=== PATIENT | female | born 1945 | race Caucasian/White ===

== ENCOUNTER 2018-06-15 22:10 | Emergency (ER) | payer MEDICARE ==
[~2018-06-15] VITALS: Ht 162.6 cm; Wt 72.6 kg
--- NOTE | 2018-06-15 22:31 | PHYS DOC ---
Adult General Chief Complaint Chief Complaint: ABDOMINAL PAIN HPI HPI Patient is a 73-year-old female who presents with complaint of upper abdominal pain that started at around 3:30 this afternoon. She rates pain to be a 7 out of 10. She does admit to nausea with vomiting and diarrhea. She states the pain radiates into her back. She denies any fever. Patient states that nothing seems to worsen or improve her symptoms. Review of Systems Review of Systems Constitutional: Denies fever or chills [] Respiratory: Denies cough or shortness of breath [] Cardiovascular: No additional information not addressed in HPI [] GI: Complains of abdominal pain with nausea and vomiting. Denies diarrhea [] : Denies dysuria or hematuria [] Musculoskeletal: Complains of mid back pain [] All other systems were reviewed and found to be within normal limits, except as documented in this note. Current Medications Current Medications Current Medications Medications (Trade) Dose Ordered Sig/Dayday Start Time Stop Time Status Last Admin Dose Admin Fentanyl Citrate (Fentanyl 2ml Vial) 100 mcg STK-MED ONCE 06/15/18 23:37 06/15/18 23:38 DC Hydromorphone HCl (Dilaudid) 0.5 mg 1X ONCE 06/16/18 02:00 06/16/18 02:03 DC 06/16/18 01:55 0.5 MG Ondansetron HCl (Zofran) 4 mg 1X ONCE 06/15/18 22:45 06/15/18 22:46 DC 06/15/18 23:01 4 MG Sodium Chloride 1,000 ml @ 1,000 mls/hr Q1H 06/15/18 22:45 06/15/18 23:44 DC 06/15/18 23:01 1,000 MLS/HR Tamsulosin HCl (Flomax) 0.4 mg 1X ONCE 06/16/18 01:45 06/16/18 01:46 DC 06/16/18 01:55 0.4 MG Allergies Allergies Allergies Coded Allergies Type Severity Reaction Last Updated Verified No Known Drug Allergies 06/15/18 No Physical Exam Physical Exam Constitutional: Well developed, well nourished, in mild distress. [] HENT: Normocephalic, atraumatic, bilateral external ears normal, oropharynx moist, no oral exudates, nose normal. [] Eyes: PERRLA, EOMI, conjunctiva normal, no discharge. [] Neck: Normal range of motion, no tenderness, supple, no stridor. [] Cardiovascular:Heart rate regular rhythm, no murmur [] Lungs & Thorax: Bilateral breath sounds clear to auscultation [] Abdomen: Bowel sounds normal, soft, no tenderness. [] Skin: Warm, dry, no erythema, no rash. [] Extremities: No tenderness, no cyanosis, no clubbing, ROM intact, no edema. [] Neurologic: Alert and oriented X 3, no focal deficits noted. [] Current Patient Data Vital Signs Vital Signs Date Time Temp Pulse Resp B/P (MAP) Pulse Ox O2 Delivery O2 Flow Rate FiO2 06/16/18 01:55 16 96 Room Air 06/16/18 01:25 72 159/71 (100) 06/16/18 00:35 0.1 06/15/18 22:11 98.0 98.0 Lab Values Laboratory Tests Test 06/15/18 22:55 White Blood Count 11.2 x10^3/uL (4.0-11.0) H Red Blood Count 5.13 x10^6/uL (3.50-5.40) Hemoglobin 14.9 g/dL (12.0-15.5) Hematocrit 44.9 % (36.0-47.0) Mean Corpuscular Volume 88 fL (79-100) Mean Corpuscular Hemoglobin 29 pg (25-35) Mean Corpuscular Hemoglobin Concent 33 g/dL (31-37) Red Cell Distribution Width 13.2 % (11.5-14.5) Platelet Count 179 x10^3/uL (140-400) Neutrophils (%) (Auto) 83 % (31-73) H Lymphocytes (%) (Auto) 12 % (24-48) L Monocytes (%) (Auto) 4 % (0-9) Eosinophils (%) (Auto) 0 % (0-3) Basophils (%) (Auto) 0 % (0-3) Neutrophils # (Auto) 9.3 x10^3uL (1.8-7.7) H Lymphocytes # (Auto) 1.4 x10^3/uL (1.0-4.8) Monocytes # (Auto) 0.5 x10^3/uL (0.0-1.1) Eosinophils # (Auto) 0.0 x10^3/uL (0.0-0.7) Basophils # (Auto) 0.0 x10^3/uL (0.0-0.2) Sodium Level 141 mmol/L (136-145) Potassium Level 4.5 mmol/L (3.5-5.1) Chloride Level 103 mmol/L (98-107) Carbon Dioxide Level 25 mmol/L (21-32) Anion Gap 13 (6-14) Blood Urea Nitrogen 25 mg/dL (7-20) H Creatinine 1.3 mg/dL (0.6-1.0) H Estimated GFR (Cockcroft-Gault) 40.2 BUN/Creatinine Ratio 19 (6-20) Glucose Level 191 mg/dL (70-99) H Calcium Level 9.5 mg/dL (8.5-10.1) Total Bilirubin 0.3 mg/dL (0.2-1.0) Aspartate Amino Transferase (AST) 28 U/L (15-37) Alanine Aminotransferase (ALT) 42 U/L (14-59) Alkaline Phosphatase 83 U/L (46-116) Troponin I Quantitative < 0.017 ng/mL (0.000-0.055) Total Protein 7.9 g/dL (6.4-8.2) Albumin 3.9 g/dL (3.4-5.0) Albumin/Globulin Ratio 1.0 (1.0-1.7) Lipase 145 U/L (73-393) Laboratory Tests 06/15/18 22:55 Laboratory Tests 06/15/18 22:55 EKG EKG [] Radiology/Procedures Radiology/Procedures [] Impressions: EXAM: CT Abdomen and Pelvis without IV contrast CLINICAL HISTORY: abd pain COMPARISON: CT 02/21/2011 TECHNIQUE: Helical CT of the abdomen and pelvis without intravenous contrast. Axial, coronal and sagittal reformatted images were generated. PQRS compliance statement - One or more of the following individualized dose reduction techniques were utilized for this study: 1. Automated exposure control 2. Adjustment of the mA and/or kV according to patient size 3. Use of iterative reconstruction technique FINDINGS: Lack of intravenous contrast limits evaluation of solid organs, vasculature, and lymph nodes. Lower chest: Lung bases are clear. Subpleural opacities left lower lobe likely scarring/atelectasis. Abdomen and Pelvis: No focal liver lesion. Gallbladder is normal. No biliary ductal dilatation. Spleen is unremarkable. Pancreas is normal. Adrenal glands are unremarkable. Multiple bilateral renal calculi are seen, for example a left interpolar renal calculus measures 3 mm and a left lower pole calculus measures 5 mm. There is a 4 mm calculus at the right ureterovesicular junction with moderate right hydronephrosis and hydroureter and associated perinephric and periureteral fat infiltration. No definite lateral calculus is seen. Appendix is normal. The transverse colon and left colon is mostly decompressed. No small or large bowel dilatation. No abdominal or pelvic ascites or lymphadenopathy. Aortic calcifications are seen. Bones: Multilevel degenerative changes of the spine are seen. L4 hemangioma is seen. IMPRESSION: 1. A 4 mm calculus at the right ureterovesicular junction results in moderate right hydronephrosis and hydroureter. Associated perinephric and periureteric fat infiltration is seen, superimposed infection is not excluded. 2. Multiple additional bilateral nonobstructing renal calculi. Electronically signed by: Smith Das MD (06/16/2018 1:23 AM) [facility] Course & Med Decision Making Course & Med Decision Making Pertinent Labs and Imaging studies reviewed. (See chart for details) [] Dragon Disclaimer Dragon Disclaimer This electronic medical record was generated, in whole or in part, using a voice recognition dictation system. Departure Departure Impression: Primary Impression: Ureterolithiasis Disposition: 01 HOME, SELF-CARE Condition: STABLE Referrals: NO PCP (PCP) ANDREW VERNON MD Patient Instructions: Kidney Stones Scripts Tamsulosin Hcl (FLOMAX) 0.4 Mg Cap.er.24h 0.4 MG PO DAILY for 7 Days, #7 TAB Prov: ROZINA BROWN Jr. DO 06/16/18 Ondansetron Hcl (ZOFRAN) 4 Mg Tablet 4 MG PO PRN TID PRN for NAUSEA, #15 nausea/vomiting Prov: ROZINA BROWN Jr. DO 06/16/18 Oxycodone/Apap 7.5-325 (PERCOCET 7.5-325 MG TABLET ) 1 Each Tablet 1 TAB PO PRN Q6HRS PRN for PAIN, #15 TAB 0 Refills Prov: ROZINA BROWN Jr. DO 06/16/18 ROZINA BROWN Jr. DO Jun 15, 2018 22:31
[2018-06-15] MEDS ORDERED: IV NORMAL SALINE 1000ML BAG 1,000 ML IV SCH (22:45)
[2018-06-15] MEDS ORDERED: ONDANSETRON PF 4 MG/2 ML VIAL. IV ONE (22:45)
[2018-06-15] MEDS ORDERED: fentaNYL PF VIAL 100 MCG/2 ML VIAL IV PRN (22:45)
[2018-06-15] MEDS ORDERED: ATOR20TA58 PO (22:47)
[2018-06-15 23:03] LABS: BASO % 0 % (0-3); EOS % 0 % (0-3); HEMATOCRIT 44.9 % (36.0-47.0); HEMOGLOBIN 14.9 g/dL (12.0-15.5); LYMPH # 1.4 x10^3/uL (1.0-4.8); LYMPH % 12 % (24-48); MEAN CORPUSCULAR HEMOGLOBIN 29 pg (25-35); MEAN CORPUSCULAR HGB CONC 33 g/dL (31-37); MEAN CORPUSCULAR VOLUME 88 fL (79-100); MONO # 0.5 x10^3/uL (0.0-1.1); MONO % 4 % (0-9); NEUT # 9.3 x10^3uL (1.8-7.7); NEUT % 83 % (31-73); PLATELET COUNT 179 x10^3/uL (140-400); RED BLOOD COUNT 5.13 x10^6/uL (3.50-5.40); RED CELL DISTRIBUTION WIDTH 13.2 % (11.5-14.5); WHITE BLOOD COUNT 11.2 x10^3/uL (4.0-11.0)
[2018-06-15 23:11] LABS: CALCIUM 9.5 mg/dL (8.5-10.1); CREATININE 1.3 mg/dL (0.6-1.0); GFR 40.2; POTASSIUM 4.5 mmol/L (3.5-5.1)
[2018-06-15 23:17] LABS: ALBUMIN 3.9 g/dL (3.4-5.0); TOTAL BILIRUBIN 0.3 mg/dL (0.2-1.0); TOTAL PROTEIN 7.9 g/dL (6.4-8.2)
[2018-06-15] MEDS ORDERED: fentaNYL PF VIAL 100 MCG/2 ML VIAL ONE (23:37)
[2018-06-15] MEDS ORDERED: fentaNYL PF VIAL 100 MCG/2 ML VIAL IV ONE (23:45)
[2018-06-16] MEDS ORDERED: HYDROmorphone 2 MG/ML VIAL ONE (00:29)
[2018-06-16] MEDS ORDERED: HYDROmorphone 2 MG/ML VIAL IV ONE ×3 (00:30→02:00)
[2018-06-16 01:25] VITALS: BP 159/71
--- NOTE | 2018-06-16 01:26 | RAD ---
EXAM: CT Abdomen and Pelvis without IV contrast CLINICAL HISTORY: abd pain COMPARISON: CT 02/21/2011 TECHNIQUE: Helical CT of the abdomen and pelvis without intravenous contrast. Axial, coronal and sagittal reformatted images were generated. PQRS compliance statement - One or more of the following individualized dose reduction techniques were utilized for this study: 1. Automated exposure control 2. Adjustment of the mA and/or kV according to patient size 3. Use of iterative reconstruction technique FINDINGS: Lack of intravenous contrast limits evaluation of solid organs, vasculature, and lymph nodes. Lower chest: Lung bases are clear. Subpleural opacities left lower lobe likely scarring/atelectasis. Abdomen and Pelvis: No focal liver lesion. Gallbladder is normal. No biliary ductal dilatation. Spleen is unremarkable. Pancreas is normal. Adrenal glands are unremarkable. Multiple bilateral renal calculi are seen, for example a left interpolar renal calculus measures 3 mm and a left lower pole calculus measures 5 mm. There is a 4 mm calculus at the right ureterovesicular junction with moderate right hydronephrosis and hydroureter and associated perinephric and periureteral fat infiltration. No definite lateral calculus is seen. Appendix is normal. The transverse colon and left colon is mostly decompressed. No small or large bowel dilatation. No abdominal or pelvic ascites or lymphadenopathy. Aortic calcifications are seen. Bones: Multilevel degenerative changes of the spine are seen. L4 hemangioma is seen. IMPRESSION: 1. A 4 mm calculus at the right ureterovesicular junction results in moderate right hydronephrosis and hydroureter. Associated perinephric and periureteric fat infiltration is seen, superimposed infection is not excluded. 2. Multiple additional bilateral nonobstructing renal calculi. Electronically signed by: Smith Das MD (06/16/2018 1:23 AM) [place] [id number]
[2018-06-16] MEDS ORDERED: TAMSULOSIN 0.4 MG CAP.ER.24H. PO ONE (01:45)
[2018-06-16] MEDS ORDERED: ONDA4TAB7 PO (01:51)
[2018-06-16] MEDS ORDERED: OXYC1TAB19 PO (01:51)
[2018-06-16] MEDS ORDERED: TAMS0.4C97 PO (01:51)
--- NOTE | 2018-06-16 18:49 | EKG ---
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
== END 2018-06-16 02:06 | disposition home or self-care (01) ==
LOC: ER 22:10
DX: N20.1 Calculus of ureter (principal); R10.10 Upper abdominal pain, unspecified; R11.2 Nausea with vomiting, unspecified; R19.7 Diarrhea, unspecified; M54.6 Pain in thoracic spine
CPT/HCPCS: 36415; 74176; 80053; 83690; 84484; 85025; 93005; 96361; 96374; 96375; 96376; 99284; J1170; J2405; J3010; J7030